=== PATIENT | female | born 1995 | race Hispanic/Latino ===

== ENCOUNTER 2016-05-15 13:04 | Emergency (ER) | payer OTHER ==
[~2016-05-15] VITALS: Ht 167.6 cm; Wt 79.4 kg
[2016-05-15] MEDS ORDERED: PERC5TAB6 PO (13:25)
[2016-05-15] MEDS ORDERED: ONDANSETRON 4MG/2ML VIAL (J2405) IV ONE (13:45)
[2016-05-15] MEDS ORDERED: NS 1,000 ML IV ONE (13:45)
[2016-05-15] MEDS: MORPHINE 4 MG/ML 1ML SYRINGE IV PRN ×2 (14:23→15:38)
[2016-05-15 14:40] LABS: BASO % 0.3 % (0.0-1.0); EOS # 0.1 K/mm3 (0.0-0.50); EOS % 1.7 % (0.0-3.0); LARGE UNSTAINED CELL # 0.1 K/mm3 (0.0-0.4); LARGE UNSTAINED CELL % 1.5 % (0.0-4.0); LYMPH # 1.9 K/mm3 (1.5-6.5); LYMPH % 24.6 % (24.0-44.0); MEAN CORPUSCULAR HEMOGLOBIN 28.5 pg (27.0-33.0); MEAN CORPUSCULAR HGB CONC 34.2 g/dl (32.0-36.5); MEAN CORPUSCULAR VOLUME 83.4 fl (80.0-96.0); MONO # 0.4 K/mm3 (0.0-0.8); MONO % 5.8 % (0.0-5.0); NEUTROPHILS # 4.7 K/mm3 (1.8-7.7); NEUTROPHILS % 66.1 % (36.0-66.0); PLATELET COUNT, AUTOMATED 253 k/mm3 (150-450); RED CELL DISTRIBUTION WIDTH 12.8 % (11.5-14.5); WHITE BLOOD COUNT 7.1 K/mm3 (4.0-10.0)
[2016-05-15 16:36] LABS: ALBUMIN 3.6 GM/DL (3.2-5.2); ALBUMIN/GLOBULIN RATIO 1.06 (1.00-1.93); ALKALINE PHOSPHATASE 85 U/L (45-117); ALT/SGPT 322 U/L (12-78); ANION GAP 7 MEQ/L (8-16); AST/SGOT 235 U/L (15-37); BILIRUBIN,TOTAL 1.6 MG/DL (0.2-1.0); BLOOD UREA NITROGEN 7 MG/DL (7-18); CALCIUM LEVEL 8.4 MG/DL (8.5-10.1); CARBON DIOXIDE LEVEL 27 MEQ/L (21-32); CHLORIDE LEVEL 107 MEQ/L (98-107); CREATININE FOR GFR 0.55 MG/DL (0.55-1.02); GLOMERULAR FILTRATION RATE > 60.0 (>60); GLUCOSE, FASTING 97 MG/DL (70-105); POTASSIUM SERUM 3.1 MEQ/L (3.5-5.1); SODIUM LEVEL 141 MEQ/L (136-145)
[2016-05-15] MEDS ORDERED: KETOROLAC 30 MG/ML VIAL (J1885) IV ONE (16:45)
[2016-05-15] MEDS ORDERED: ISOVUE-370 76% 100ML VIAL (Q9967) As Ordered ONE (17:00)
--- NOTE | 2016-05-15 17:42 | REP ---
CT study of the abdomen and pelvis with IV but without oral contrast: History: Abdominal pain. Right-sided. The patient reports prior cholecystectomy. CT contrast dose: 100 mL of Isovue 370 is administered intravenously. Comparison CT study: 09/27/2014. 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 There are clips in the right upper quadrant. The lung bases are clear on axial CT images. There is a fluid collection adjacent to surgical clips within the gallbladder fossa. This fluid collection measures 4.0 x 2.3 x 2.2 cm. This resembles the gallbladder in size and shape. No gallstone is seen. Common bile duct measures 6-7 mm in AP dimension post cholecystectomy. No pancreatic abnormality is appreciated. No adrenal lesion is observed. No focal liver lesion is seen. The spleen is unremarkable. The kidneys enhance symmetrically are morphologically intact. No retroperitoneal mass or adenopathy is seen. A normal appendix is seen in the right lower quadrant. Uterus is tipped to the left. There is a cystic area in the right ovary measuring 3.5 cm in diameter. Small and large intestinal bowel loops are normal in the abdomen and pelvis. Urinary bladder is intact. No abdominal wall defect is seen. No bony destructive lesion is seen. Incidental note is made of bilateral L5 spondylolysis and a grade 1, 2-3 mm L5-S1 spondylolisthesis. Impression: 1. Post cholecystectomy. There is a 4 cm fluid collection in the gallbladder fossa adjacent to surgical clips. Possibilities include hematoma seroma, biloma, and incomplete resection of the gallbladder due to extensive inflammatory changes. The previously noted gallstones are no longer apparent. Common bile duct is normal in caliber post cholecystectomy. 2. Normal appendix seen. 3. 3.5 cm cystic area right ovary. Otherwise unremarkable. 4. Bilateral L5 spondylolysis and 2 mm grade 1, L5-S1 spondylolisthesis. Signed by Jorgito Aguero MD 05/15/2016 07:36 P
[2016-05-15] MEDS ORDERED: K-TA10TA2 PO (18:28)
[2016-05-15] MEDS ORDERED: KETO10TAB PO (18:28)
[2016-05-15] MEDS ORDERED: ZOFR4TAB3 PO (18:28)
[2016-05-15 18:44] VITALS: BP 129/75
--- NOTE | 2016-05-17 21:06 | ED PDOC ---
Post-Departure Follow-Up dr cosby faxed formal report of ct abd/p for fu John Garrido MD May 17, 2016 21:06
== END 2016-05-15 18:46 | disposition home or self-care (01) ==
LOC: M ED 14:22
DX: E87.5 Hyperkalemia (principal); G89.29 Other chronic pain; R10.9 Unspecified abdominal pain; K87 Disorders of gallbladder, biliary tract and pancreas in diseases classified elsewhere; N83.201 Unspecified ovarian cyst, right side; M43.17 Spondylolisthesis, lumbosacral region; M43.16 Spondylolisthesis, lumbar region; Z79.899 Other long term (current) drug therapy; Z88.6 Allergy status to analgesic agent; Z88.5 Allergy status to narcotic agent
CPT/HCPCS: 74177; 80048; 80076; 81001; 81025; 83690; 85025; 96374; 96375; 99283; J1885; J2405; Q9967

== ENCOUNTER 2016-10-21 01:21 | Inpatient (IN) | payer OTHER ==
[~2016-10-21] VITALS: Ht 167.6 cm; Wt 82.3 kg
[~2016-10-21 01:21] MED LIST: K-TA10TA2 PO; KETO10TAB PO; PERC5TAB12 PO; ZOFR4TAB3 PO
[2016-10-21] MEDS ORDERED: [UNRECOGNIZED DRUG - OTHER] PO (01:43)
[2016-10-21] MEDS ORDERED: NS 1,000 ML IV ONE (03:15)
[2016-10-21] MEDS ORDERED: ONDANSETRON 4MG/2ML VIAL (J2405) IV ONE (03:15)
[2016-10-21] MEDS ORDERED: MORPHINE 4 MG/ML 1ML SYRINGE IV ONE (03:15)
[2016-10-21 03:54] LABS: BASO # 0.1 K/mm3 (0.0-0.2); BASO % 0.6 % (0.0-1.0); EOS # 0.1 K/mm3 (0.0-0.50); EOS % 1.1 % (0.0-3.0); LARGE UNSTAINED CELL # 0.1 K/mm3 (0.0-0.4); LARGE UNSTAINED CELL % 0.8 % (0.0-4.0); LYMPH # 2.2 K/mm3 (1.5-6.5); LYMPH % 18.3 % (24.0-44.0); MEAN CORPUSCULAR HEMOGLOBIN 28.9 pg (27.0-33.0); MEAN CORPUSCULAR HGB CONC 33.8 g/dl (32.0-36.5); MEAN CORPUSCULAR VOLUME 85.4 fl (80.0-96.0); MONO # 0.4 K/mm3 (0.0-0.8); MONO % 3.4 % (0.0-5.0); NEUTROPHILS # 8.6 K/mm3 (1.8-7.7); NEUTROPHILS % 75.8 % (36.0-66.0); PLATELET COUNT, AUTOMATED 260 k/mm3 (150-450); RED CELL DISTRIBUTION WIDTH 12.3 % (11.5-14.5); WHITE BLOOD COUNT 11.4 K/mm3 (4.0-10.0)
--- NOTE | 2016-10-21 04:30 | REPUSA ---
CLINICAL HISTORY: Abdominal pain. TECHNIQUE: Realtime sonographic images were obtained in multiple projections. COMMENTS: Patient states gallbladder surgery on 11/2014. There is a gallbladder-like structure in the gallbladder fossa with multiple echogenic structures sug gestive of stones. Dilated common bile duct measuring 7.9 mm. Limited visualization of the pancreas. Unremarkable liver. Unremarkable right kidney measuring 11.1x5.5x5.9 cm. IMPRESSION: Patient states gallbladder surgery on 11/2014. There is a gallbladder-like structure in the gallbladder fossa with multiple echogenic structures sug gestive of stones. Dilated common bile duct measuring 7.9 mm. Limited visualization of the pancreas. Unremarkable liver. Unremarkable right kidney measuring 11.1x5.5x5.9 cm. Thank you for your kind referral of this patient.
[2016-10-21 04:34] LABS: CONTROL LINE HCG INT CTR LINE PRESENT
[2016-10-21 04:41] LABS: ALBUMIN 4.3 GM/DL (3.2-5.2); ALBUMIN/GLOBULIN RATIO 1.05 (1.00-1.93); ALKALINE PHOSPHATASE 48 U/L (45-117); ALT/SGPT 27 U/L (12-78); AMYLASE 34 U/L (25-115); ANION GAP 10 MEQ/L (8-16); AST/SGOT 11 U/L (15-37); BILIRUBIN,DIRECT < 0.1 MG/DL (0.0-0.2); BILIRUBIN,TOTAL 0.3 MG/DL (0.2-1.0); BLOOD UREA NITROGEN 11 MG/DL (7-18); CALCIUM LEVEL 9.3 MG/DL (8.5-10.1); CARBON DIOXIDE LEVEL 25 MEQ/L (21-32); CHLORIDE LEVEL 109 MEQ/L (98-107); CREATININE FOR GFR 0.68 MG/DL (0.55-1.02); GLOMERULAR FILTRATION RATE > 60.0 (>60); GLUCOSE, FASTING 122 MG/DL (70-105); POTASSIUM SERUM 3.7 MEQ/L (3.5-5.1); SODIUM LEVEL 144 MEQ/L (136-145); TOTAL PROTEIN 8.4 GM/DL (6.4-8.2)
[2016-10-21] MEDS ORDERED: ISOVUE-370 76% 100ML VIAL (Q9967) As Ordered ONE (05:52)
[2016-10-21] MEDS: HYDROmorphone HCL 1 MG/ML SYRINGE (J1170) IV PRN ×2 (06:00→08:18)
--- NOTE | 2016-10-21 07:00 | REPUSA ---
CLINICAL HISTORY: Abdominal pain. TECHNIQUE: Multiple axial, sagittal and coronal CT images were obtained through the abdomen and pelvi s after administration of intravenous contrast material. COMMENTS: Comparison to the prior exam performed on 05/15/2016. Interval appearance of significant thickening of the proximal aspect of the transverse colon. Associated narrowing of the lumen of the transverse colon at this level with mild surrounding fat str anding. Mild diffuse thickening of the wall of the bladder. Mild bilateral changes of pelvic congestion syndrome. The liver is of uniform attenuation without mass or defect. There is no intra or extrahepatic biliary ductal dilatation. The spleen is normal. The gallbladder is within normal limits. Adjacent clips are noted. The pancreas is of normal contour and attenuation characteristics. There is no evidence of adrenal mass. Both kidneys demonstrate prompt and equal nephrograms. The kidneys are normal in size, shape and conf iguration. There is no evidence of renal or ureteral mass. No renal or ureteral calculi are identifie d. There is no hydroureter or hydronephrosis. No evidence for appendicitis. No evidence for small or large bowel obstruction. There is no evidence of abdominal ascites or lymphadenopathy. There is no evidence of intrinsic or extrinsic bladder mass. There is no pelvic ascites or lymphadeno dayanara. Images of the lung bases show no evidence of pleural or parenchymal mass. There are no pleural effusi ons. Bilateral basilar atelectatic pulmonary changes. The bony structures are free of lytic or blastic lesions. Multilevel degenerative changes are seen in volving the thoracolumbar spine. Scattered calcifications are seen involving the aorta and major bran ches compatible with atherosclerosis. IMPRESSION: Comparison to the prior exam performed on 05/15/2016. Interval appearance of significant thickening of the proximal aspect of the transverse colon. Associated narrowing of the lumen of the transverse colon at this level with mild surrounding fat str anding. Probably infectious/inflammatory pathology. This needs clinical evaluation and followup to exclude an underlying/associated mural neoplastic pathology. Mild diffuse thickening of the wall of the bladder. Mild bilateral changes of pelvic congestion syndrome. Normal gallbladder by CT criteria. Adjacent metallic clips are noted. Thank you for your kind referral of this patient.
[2016-10-21] MEDS ORDERED: MORPHINE 4 MG/ML 1ML SYRINGE IV PRN (09:45)
[2016-10-21] MEDS ORDERED: ACETAMINOPHEN TAB 650MG DOSE (2X325MG) PO PRN (09:45)
[2016-10-21] MEDS ORDERED: CIPROFLOXACIN 400 MG in APPROPRIATE DILUENT 1 EA IV SCH ×2 (10:00→18:15)
[2016-10-21] MEDS: ONDANSETRON 4MG/2ML VIAL (J2405) IV PRN ×2 (12:54→20:17)
[2016-10-21 16:13] VITALS: BP 137/81
[2016-10-21] MEDS: PERCOCET 5MG/325MG TAB PO PRN ×2 (16:27→20:13)
[2016-10-21] MEDS: SENOKOT S TAB PO SCH ×2 (17:54→20:12)
[2016-10-21] MEDS: ENOXAPARIN 40 MG/0.4 ML SYRINGE (J1650) SC SCH (17:57)
[2016-10-21] MEDS: LR 1,000 ML IV SCH (17:57)
[2016-10-21] MEDS: PANTOPRAZOLE 40MG INJ (PROTONIX) (C9113) IV SCH (17:57)
[2016-10-21] MEDS: metroNIDAZOLE 500 MG in APPROPRIATE DILUENT 1 EA IV SCH ×2 (17:58→18:11)
[2016-10-21 20:00] VITALS: BP 123/74
[2016-10-22] VITALS: BP 126/61
[2016-10-22] MEDS: LR 1,000 ML IV SCH ×3 (01:57→22:20)
[2016-10-22] MEDS: metroNIDAZOLE 500 MG in APPROPRIATE DILUENT 1 EA IV SCH ×3 (02:02→19:08)
[2016-10-22] MEDS: PERCOCET 5MG/325MG TAB PO PRN ×2 (02:02→09:55)
[2016-10-22] MEDS: CIPROFLOXACIN 400 MG in APPROPRIATE DILUENT 1 EA IV SCH ×2 (05:34→17:37)
[2016-10-22] MEDS: PANTOPRAZOLE 40MG INJ (PROTONIX) (C9113) IV SCH (08:29)
[2016-10-22 08:30] VITALS: BP 126/79
[2016-10-22] MEDS: ENOXAPARIN 40 MG/0.4 ML SYRINGE (J1650) SC SCH (08:30)
[2016-10-22] MEDS: SENOKOT S TAB PO SCH ×2 (08:30→20:54)
[2016-10-22] MEDS: ONDANSETRON 4MG/2ML VIAL (J2405) IV PRN ×2 (09:54→19:08)
[2016-10-22 16:00] VITALS: BP 118/67
--- NOTE | 2016-10-22 16:12 | IPNPDOC ---
Subjective General Date/Time Seen The patient was seen on 10/22/16 at 10:09. Subject Chief Complaint/History The patient is a 21-year-old female admitted with a reason for visit of Abdominal Pain Patient still having significant RUQ pain and discomfort as well as some nausea. On clears, not taking much. Current Medications Current Medications Current Medications Acetaminophen (Tylenol Tab) 650 mg Q4HP PRN PO MILD PAIN or TEMP > 101; Start 10/21/16 at 09:45; Stop 11/20/16 at 09:44 Ciprofloxacin 400 mg/IV Miscellaneous Supplies 200 ml @ 200 mls/hr Q12H IV Last administered on 10/21/16 16:28; Start 10/21/16 at 10:00; Stop 10/21/16 at 18:11; Status DC Ciprofloxacin 400 mg/IV Miscellaneous Supplies 200 ml @ 200 mls/hr Q12H IV ; Start 10/21/16 at 18:15; Stop 10/28/16 at 18:14; Status Cancel Ciprofloxacin 400 mg/IV Miscellaneous Supplies 200 ml @ 200 mls/hr Q12H IV Last administered on 10/22/16 05:34; Start 10/22/16 at 05:00; Stop 10/29/16 at 04:59 Enoxaparin Sodium (Lovenox) 40 mg DAILY SC Last administered on 10/22/16 08:30 ; Start 10/21/16 at 09:00; Stop 10/26/16 at 08:59 Home Med (Med Rec Complete!) ASDIRECTED XX ; Start 10/21/16 at 10:15; Stop at 10:25; Status DC Hydromorphone HCl (Dilaudid) 0.5 mg Q30M PRN IV MODERATE PAIN (PS 5-7) Last administered on 10/21/16 08:18; Start 10/21/16 at 05:00; Stop 10/21/16 at 08:19 ; Status DC Lactated Ringer's 1,000 ml @ 125 mls/hr Q8H IV Last administered on 10/22/16 01:57; Start 10/21/16 at 09:37; Stop 11/20/16 at 09:36 Metronidazole 500 mg/IV Miscellaneous Supplies 100 ml @ 100 mls/hr Q8H IV Last administered on 10/22/16 11:29; Start 10/21/16 at 11:00; Stop 10/28/16 at 10:59 Miscellaneous (Unresolved Clarification Entry) SEE LABEL COMMENTS UNRESOLVED XX ; Start 10/21/16 at 00:01; Stop 10/21/16 at 11:13; Status DC Morphine Sulfate (Morphine Sulfate Inj) 4 mg Q2HP PRN IV SEVERE PAIN (PS 8-10) Last administered on 10/21/16 12:57; Start 10/21/16 at 09:45; Stop 10/28/16 at 09:44 Ondansetron HCl (ZOFRAN INJection) 4 mg Q6HP PRN IV NAUSEA OR VOMITING Last administered on 10/22/16 09:54; Start 10/21/16 at 09:45; Stop 11/20/16 at 09: 44 Oxycodone/ Acetaminophen (Percocet 5mg/ 325mg Tablet) 1 tab Q4HP PRN PO MODERATE PAIN (PS 5-7) Last administered on 10/21/16 20:13; Start 10/21/16 at 09:45; Stop 10/28/16 at 09:44 Oxycodone/ Acetaminophen (Percocet 5mg/ 325mg Tablet) 2 tab Q6HP PRN PO SEVERE PAIN (PS 8-10) Last administered on 10/22/16 09:55; Start 10/21/16 at 09:45; Stop 10/28/16 at 09:44 Pantoprazole Sodium (Protonix) 40 mg DAILY IV Last administered on 10/22/16 08 :29; Start 10/21/16 at 09:00; Stop 11/20/16 at 08:59 Senna/Docusate Sodium (Senokot S) 1 tab BID PO Last administered on 10/22/16 08:30; Start 10/21/16 at 09:00; Stop 11/20/16 at 08:59 Allergies Coded Allergies: Oxycodone (Verified Allergy, Mild, rash, 10/24/16) Objective Physical Examination Examination GENERAL APPEARANCE:Patient seen, laying in bed, awake, alert, and oriented. Comfortable, in no acute distress. SKIN: Warm and moist. HEENT: Normocephalic, atraumatic. [place] palpebral conjunctiva, anicteric sclerae. Lips and mucosa appear moist. NECK: Supple, no thyromegaly. No obvious jugular venous distention. LUNGS: Clear to auscultation bilaterally. No wheezing appreciated. HEART: No chest wall abnormalities. Regular rate and rhythm with no murmurs appreciated. ABDOMEN: Abdomen is found, soft, minimally distended. Still moderate tenderness over the right upper quadrant area EXTREMITIES: Extremities have no deformities. No edema identified. Vital Signs Vital Signs Date Time Temp Pulse Resp B/P (MAP) Pulse Ox O2 Delivery O2 Flow Rate FiO2 10/22/16 10:50 16 10/22/16 08:30 98.0 59 126/79 (95) 98 Room Air I&Os I&O- Last 24 Hours up to 6 AM 10/22/16 05:59 Intake Total 1450 ml Balance 1450 ml Impression Right upper quadrant pain Suspect biloma, well-contained noninfected Suspect possible retained stones in the common bile duct The MRI was done but not read yet by our radiologist. For now we will keep her on clears. She may need gastroenterology consult if stones are found in the common bile duct for ERCP Plan / VTE VTE Prophylaxis Ordered?: Yes GAL COVINGTON MD Oct 22, 2016 16:12
[2016-10-23 00:02] VITALS: BP 107/63
[2016-10-23] MEDS: metroNIDAZOLE 500 MG in APPROPRIATE DILUENT 1 EA IV SCH ×3 (02:37→18:09)
[2016-10-23] MEDS: CIPROFLOXACIN 400 MG in APPROPRIATE DILUENT 1 EA IV SCH ×2 (04:46→16:25)
[2016-10-23 07:14] LABS: BASO % 0.5 % (0.0-1.0); EOS # 0.1 K/mm3 (0.0-0.50); EOS % 2.4 % (0.0-3.0); LARGE UNSTAINED CELL # 0.1 K/mm3 (0.0-0.4); LARGE UNSTAINED CELL % 2.2 % (0.0-4.0); LYMPH # 2.5 K/mm3 (1.5-6.5); LYMPH % 40.9 % (24.0-44.0); MEAN CORPUSCULAR HEMOGLOBIN 28.5 pg (27.0-33.0); MEAN CORPUSCULAR HGB CONC 33.4 g/dl (32.0-36.5); MEAN CORPUSCULAR VOLUME 85.2 fl (80.0-96.0); MONO # 0.5 K/mm3 (0.0-0.8); MONO % 8.9 % (0.0-5.0); NEUTROPHILS # 2.7 K/mm3 (1.8-7.7); NEUTROPHILS % 45.2 % (36.0-66.0); PLATELET COUNT, AUTOMATED 195 k/mm3 (150-450); RED CELL DISTRIBUTION WIDTH 12.3 % (11.5-14.5); WHITE BLOOD COUNT 5.9 K/mm3 (4.0-10.0)
[2016-10-23 07:32] LABS: ALKALINE PHOSPHATASE 39 U/L (45-117); ALT/SGPT 17 U/L (12-78); ANION GAP 8 MEQ/L (8-16); AST/SGOT 14 U/L (15-37); BILIRUBIN,TOTAL 0.2 MG/DL (0.2-1.0); BLOOD UREA NITROGEN 5 MG/DL (7-18); CALCIUM LEVEL 8.3 MG/DL (8.5-10.1); CARBON DIOXIDE LEVEL 29 MEQ/L (21-32); CHLORIDE LEVEL 108 MEQ/L (98-107); CREATININE FOR GFR 0.66 MG/DL (0.55-1.02); GLOMERULAR FILTRATION RATE > 60.0 (>60); GLUCOSE, FASTING 90 MG/DL (70-105); POTASSIUM SERUM 3.5 MEQ/L (3.5-5.1); SODIUM LEVEL 145 MEQ/L (136-145)
[2016-10-23 08:00] VITALS: BP 109/64
[2016-10-23] MEDS: SENOKOT S TAB PO SCH ×2 (08:00→19:57)
[2016-10-23] MEDS: LR 1,000 ML IV SCH ×4 (08:32→18:10)
[2016-10-23] MEDS: ENOXAPARIN 40 MG/0.4 ML SYRINGE (J1650) SC SCH (08:32)
[2016-10-23] MEDS: PANTOPRAZOLE 40MG INJ (PROTONIX) (C9113) IV SCH (08:32)
[2016-10-23] MEDS ORDERED: INFLUENZA QUADRIVALENT PF VACCINE 0.5ML SYRINGE (90686) IM ONE (09:00)
--- NOTE | 2016-10-23 09:15 | REP ---
MRCP: MRCP exam was accomplished utilizing multiple heavily T2-weighted sequences in the axial and coronal planes with MIP reconstruction images performed. There is a sac filled with fluid and multiple filling defects in the region of the gallbladder fossa. This has the appearance of a gallbladder containing multiple gallstones. The common hepatic and common bile duct are not significantly dilated. The maximum diameter is 6 mm. There does appear to be a 6 mm filling defect on the distal common bile duct, which appears to represent a gallstone within the duct. There is no pancreatic duct dilatation. No adenopathy is seen in the visualized abdomen nor is there evidence of free fluid. IMPRESSION: Fluid-filled structure in the gallbladder fossa has the appearance of a gallbladder containing multiple gallstones. No intrahepatic or extrahepatic biliary dilatation. There does appear to be a stone in the distal common bile duct measuring 6 mm in diameter. Signed by Armond Shin MD 10/23/2016 04:59 P
--- NOTE | 2016-10-23 11:14 | HPEPDOC ---
General Surgery H&P Date of Admission Oct 21, 2016 at 09:37 History and Physical CHIEF COMPLAINT: Abdominal pain, right upper quadrant pain HISTORY OF PRESENT ILLNESS: Healthy 21-year-old female presented herself to the emergency room with acute onset of right upper quadrant pain. She reports a history of cholecystectomy back in 2014. She doesn't left for [place] shortly after her procedure. In June 2015 she had been seen in the hospital there for another episode of abdominal pain and from her reports had a drain placed on her right upper quadrant area for 3 months which was draining greenish bilious fluid. She was having episodes of pain and vomiting then. Her symptoms improved with the drainage and subsequently this was continued so she never did follow up with the same Dr./surgeon who saw her initially. The drain was discontinued after [place] She said prior to discontinuing the drain she has CT scan of the abdomen and pelvis done that shows no further collection. She reports since then she would have some intermittent mild episodes of right upper quadrant pain sometimes associated with nausea but usually, ago. She would intermittently takes some Percocets which she had left over. She seems to have been seen back in May of this year in our emergency room for another episode of same pain. She had imaging studies [address] of the abdomen and pelvis. Her LFTs were mildly elevated also. She did not follow up with anybody regarding this findings. She returns today after experiencing persistent pain overnight. This started after 7 PM initially was improving after dinner last night started to become severe radiating to the midepigastric and back area associated with nausea but no vomiting. She denies any fevers or chills. Patient is seen in the emergency room and this still noticeably uncomfortable. ALLERGIES: Please see below. HOME MEDICATIONS: Please see below. PAST MEDICAL HISTORY: PAST SURGICAL HISTORY: Laparoscopic cholecystectomy with Dr. Holliday in 2014 Percutaneous drain placement to the right upper quadrant collection in 2015 PERSONAL/SOCIAL HISTORY: Smokes a few cigarettes a day, occasional alcohol use, denies recreational drug use REVIEW OF SYSTEMS: GENERAL: Denies chills, fatigue, fever, she has had some weight gain; denies weight loss. HEENT: Denies blurred vision and double vision. Denies ear symptoms. Denies hoarseness. NECK: Denies any neck pain. CARDIOVASCULAR: Denies chest pain and palpitations. MUSCULOSKELETAL: Denies arthralgias, back pain and thrombophlebitis. SKIN: Denies rash; jaundice NEUROLOGIC: Denies headache, stroke and transient ischemic attack. PSYCHIATRIC: Denies anxiety and depression. ENDOCRINE: Denies thyroid disease. HEMATOLOGY/ONCOLOGY: Denies any bleeding or clotting disorder. HEART: Denies any chest pains, palpitations, paroxysmal dyspnea, orthopnea. PULMONARY: Denies chronic cough, dyspnea and wheezing. GASTROINTESTINAL: See HPI GENITOURINARY: Denies dysuria, frequency, hematuria and nocturia. ENDOCRINE: Denies polydipsia, polyphagia, polyuria, heat or cold intolerance. INFECTIOUS: Denies any recent upper respiratory tract infection, UTI, need for use of antibiotics. NUTRITION: Reports good appetite. PHYSICAL EXAMINATION: VITAL SIGNS: Please see below. GENERAL APPEARANCE: Patient seen at bedside, appears uncomfortable. Awake, alert , oriented. HEENT: Normocephalic, atraumatic. [place] palpebral conjunctivae. Anicteric sclerae. Lips dry. CHEST: No chest wall abnormalities. Normal respiratory motion/effort. NECK: Supple. No thyromegaly. No lymphadenopathies. LUNGS: Lung sounds are clear to auscultation bilaterally. No wheezing appreciated. HEART: No chest wall abnormalities. Heart rate and rhythm are regular with no murmurs. ABDOMEN: Abdomen is mild obese, soft, slightly rounded. No hepatosplenomegaly. No umbilical or groin herniations, nondistended. Tender on palpation over her right upper quadrant/subcostal area with no rebound or guarding. SKIN: Warm, moist. EXTREMITIES: Extremities have no deformities. No edema identified. NEUROLOGICAL: . ANCILLARIES: . LABORATORY DATA: Please see below. MICROBIOLOGY: Please see below. IMAGING: CT abdomen and pelvis Comparison to the prior exam performed on 05/15/2016. Interval appearance of significant thickening of the proximal aspect of the transverse colon. Associated narrowing of the lumen of the transverse colon at this level with mild surrounding fat stranding. Probably infectious/inflammatory pathology. This needs clinical evaluation and followup to exclude an underlying/associated mural neoplastic pathology. Mild diffuse thickening of the wall of the bladder. Mild bilateral changes of pelvic congestion syndrome. Normal gallbladder by CT criteria. Adjacent metallic clips are noted. Gallbladder ultrasound Patient states gallbladder surgery on 11/2014. There is a gallbladder-like structure in the gallbladder fossa with multiple echogenic structures suggestive of stones. Dilated common bile duct measuring 7.9 mm. Limited visualization of the pancreas. Unremarkable liver. Unremarkable right kidney measuring 11.1x5.5x5.9 cm. IMPRESSION AND PLAN: Right upper quadrant pain status post cholecystectomy with abnormal imaging studies bili needing a possibility of chronic biloma. Possible reactive colitis I reviewed the operative note of Dr. Holliday 2014 as well as the pathology that was submitted during that time documenting removal of the gallbladder. She had an intervening episode in 2016 of a collection which most likely was a biloma whether from a bile leakage or cystic stump blowout. We will try to get more information on this by getting the hospital records fair. We will ask her to sign for release of her records. Imaging studies including that 1 in May as well as during this presentation shows a gallbladder appearing structure in the right upper quadrant with stones. No extrahepatic biliary ductal dilatation. I' ll start her on antibiotics for now for possible colitis as well as choledocholithiasis given her presentation as well as previous presentation back in May were her LFTs was mildly abnormal. Through a possibility as she has some retained stones that is intermittently causing her problems. I'll get an MRCP to further delineate the anatomy of the biliary tree. I have spoken to her possibility of needing ERCP either delineate anatomy or as a therapeutic measure with regards to the stone in the biliary tree. Further recommendations depending on her hospital course as well as results of the MRCP. Vital Signs Vital Signs Date Time Temp Pulse Resp B/P (MAP) Pulse Ox O2 Delivery O2 Flow Rate FiO2 10/23/16 08:00 98.3 68 16 109/64 (79) 99 Room Air I&Os I&O- Last 24 Hours up to 6 AM 10/23/16 05:59 Intake Total 3397 ml Output Total 800 ml Balance 2597 ml Laboratory Data Labs 24H Laboratory Tests 2 10/23/16 06:52: White Blood Count 5.9, Red Blood Count 4.19, Hemoglobin 11.9L, Hematocrit 35.7L , Mean Corpuscular Volume 85.2, Mean Corpuscular Hemoglobin 28.5, Mean Corpuscular Hemoglobin Concent 33.4, Red Cell Distribution Width 12.3, Platelet Count 195, Neutrophils (%) (Auto) 45.2, Lymphocytes (%) (Auto) 40.9, Monocytes ( %) (Auto) 8.9H, Eosinophils (%) (Auto) 2.4, Basophils (%) (Auto) 0.5, Neutrophils # (Auto) 2.7, Lymphocytes # (Auto) 2.5, Monocytes # (Auto) 0.5, Eosinophils # (Auto) 0.1, Basophils # (Auto) 0.0, Large Unclassified Cells % 2.2 , Large Unclassified Cells # 0.1, Anion Gap 8, Glomerular Filtration Rate > 60.0 , Blood Urea Nitrogen 5#L, Creatinine 0.66, Sodium Level 145, Potassium Level 3.5, Chloride Level 108H, Carbon Dioxide Level 29, Calcium Level 8.3L, Aspartate Amino Transf (AST/SGOT) 14L, Alanine Aminotransferase (ALT/SGPT) 17, Alkaline Phosphatase 39L, Total Bilirubin 0.2, Total Protein 6.0#L, Albumin 3.0# L, Albumin/Globulin Ratio 1.00 CBC/BMP Laboratory Tests 10/23/16 06:52 Red Blood Count 4.19, Mean Corpuscular Volume 85.2, Mean Corpuscular Hemoglobin 28.5, Mean Corpuscular Hemoglobin Concent 33.4, Red Cell Distribution Width 12.3 , Neutrophils (%) (Auto) 45.2, Lymphocytes (%) (Auto) 40.9, Monocytes (%) (Auto ) 8.9 H, Eosinophils (%) (Auto) 2.4, Basophils (%) (Auto) 0.5, Neutrophils # ( Auto) 2.7, Lymphocytes # (Auto) 2.5, Monocytes # (Auto) 0.5, Eosinophils # (Auto ) 0.1, Basophils # (Auto) 0.0, Calcium Level 8.3 L, Aspartate Amino Transf (AST/ SGOT) 14 L, Alanine Aminotransferase (ALT/SGPT) 17, Alkaline Phosphatase 39 L, Total Bilirubin 0.2, Total Protein 6.0 #L, Albumin 3.0 #L Home Medications Scheduled (Detox) 1 Cap Cap, 1 CAP PO BID, (Reported) Allergies Coded Allergies: Acetaminophen (Verified Allergy, Unknown, rash, 05/15/16) Oxycodone (Verified Allergy, Unknown, rash, 05/15/16) GAL COVINGTON MD Oct 23, 2016 11:14
--- NOTE | 2016-10-23 11:19 | IPNPDOC ---
Subjective General Date/Time Seen The patient was seen on 10/23/16 at 11:14. Subject Chief Complaint/History The patient is a 21-year-old female admitted with a reason for visit of Abdominal Pain Patient reports her discomfort has mostly resolved safe for some mild discomfort when she bends over to the right upper quadrant area. Her nausea also has mostly resolved at this point. She feels hungry. She has been afebrile throughout her stay. Current Medications Current Medications Current Medications Acetaminophen (Tylenol Tab) 650 mg Q4HP PRN PO MILD PAIN or TEMP > 101; Start 10/21/16 at 09:45; Stop 11/20/16 at 09:44 Ciprofloxacin 400 mg/IV Miscellaneous Supplies 200 ml @ 200 mls/hr Q12H IV Last administered on 10/21/16 16:28; Start 10/21/16 at 10:00; Stop 10/21/16 at 18:11; Status DC Ciprofloxacin 400 mg/IV Miscellaneous Supplies 200 ml @ 200 mls/hr Q12H IV ; Start 10/21/16 at 18:15; Stop 10/28/16 at 18:14; Status Cancel Ciprofloxacin 400 mg/IV Miscellaneous Supplies 200 ml @ 200 mls/hr Q12H IV Last administered on 10/23/16 04:46; Start 10/22/16 at 05:00; Stop 10/29/16 at 04:59 Enoxaparin Sodium (Lovenox) 40 mg DAILY SC Last administered on 10/23/16 08:32 ; Start 10/21/16 at 09:00; Stop 10/26/16 at 08:59 Home Med (Med Rec Complete!) ASDIRECTED XX ; Start 10/21/16 at 10:15; Stop at 10:25; Status DC Hydromorphone HCl (Dilaudid) 0.5 mg Q30M PRN IV MODERATE PAIN (PS 5-7) Last administered on 10/21/16 08:18; Start 10/21/16 at 05:00; Stop 10/21/16 at 08:19 ; Status DC Lactated Ringer's 1,000 ml @ 125 mls/hr Q8H IV Last administered on 10/23/16 08:32; Start 10/21/16 at 09:37; Stop 11/20/16 at 09:36 Metronidazole 500 mg/IV Miscellaneous Supplies 100 ml @ 100 mls/hr Q8H IV Last administered on 10/23/16 10:19; Start 10/21/16 at 11:00; Stop 10/28/16 at 10:59 Miscellaneous (Unresolved Clarification Entry) SEE LABEL COMMENTS UNRESOLVED XX ; Start 10/21/16 at 00:01; Stop 10/21/16 at 11:13; Status DC Morphine Sulfate (Morphine Sulfate Inj) 4 mg Q2HP PRN IV SEVERE PAIN (PS 8-10) Last administered on 10/21/16 12:57; Start 10/21/16 at 09:45; Stop 10/28/16 at 09:44 Ondansetron HCl (ZOFRAN INJection) 4 mg Q6HP PRN IV NAUSEA OR VOMITING Last administered on 10/22/16 19:08; Start 10/21/16 at 09:45; Stop 11/20/16 at 09: 44 Oxycodone/ Acetaminophen (Percocet 5mg/ 325mg Tablet) 1 tab Q4HP PRN PO MODERATE PAIN (PS 5-7) Last administered on 10/21/16 20:13; Start 10/21/16 at 09:45; Stop 10/28/16 at 09:44 Oxycodone/ Acetaminophen (Percocet 5mg/ 325mg Tablet) 2 tab Q6HP PRN PO SEVERE PAIN (PS 8-10) Last administered on 10/22/16 09:55; Start 10/21/16 at 09:45; Stop 10/28/16 at 09:44 Pantoprazole Sodium (Protonix) 40 mg DAILY IV Last administered on 10/23/16 08 :32; Start 10/21/16 at 09:00; Stop 11/20/16 at 08:59 Senna/Docusate Sodium (Senokot S) 1 tab BID PO Last administered on 10/22/16 20:54; Start 10/21/16 at 09:00; Stop 11/20/16 at 08:59 Allergies Coded Allergies: Acetaminophen (Verified Allergy, Unknown, rash, 05/15/16) Oxycodone (Verified Allergy, Unknown, rash, 05/15/16) Objective Physical Examination Examination GENERAL APPEARANCE:Patient seen, walking in the room, awake, alert, and oriented. Comfortable, in no acute distress. SKIN: Warm and moist. HEENT: Normocephalic, atraumatic. [place] palpebral conjunctiva, anicteric sclerae. Lips and mucosa appear moist. NECK: Supple, no thyromegaly. No obvious jugular venous distention. LUNGS: Clear to auscultation bilaterally. No wheezing appreciated. HEART: No chest wall abnormalities. Regular rate and rhythm with no murmurs appreciated. ABDOMEN: Abdomen is , nondistended, soft, . Minimally tender on deep palpation only. EXTREMITIES: Extremities have no deformities. No edema identified. Vital Signs Vital Signs Date Time Temp Pulse Resp B/P (MAP) Pulse Ox O2 Delivery O2 Flow Rate FiO2 10/23/16 08:00 98.3 68 16 109/64 (79) 99 Room Air I&Os I&O- Last 24 Hours up to 6 AM 10/23/16 05:59 Intake Total 3397 ml Output Total 800 ml Balance 2597 ml Laboratory Data Labs 24H Laboratory Tests 2 10/23/16 06:52: White Blood Count 5.9, Red Blood Count 4.19, Hemoglobin 11.9L, Hematocrit 35.7L , Mean Corpuscular Volume 85.2, Mean Corpuscular Hemoglobin 28.5, Mean Corpuscular Hemoglobin Concent 33.4, Red Cell Distribution Width 12.3, Platelet Count 195, Neutrophils (%) (Auto) 45.2, Lymphocytes (%) (Auto) 40.9, Monocytes ( %) (Auto) 8.9H, Eosinophils (%) (Auto) 2.4, Basophils (%) (Auto) 0.5, Neutrophils # (Auto) 2.7, Lymphocytes # (Auto) 2.5, Monocytes # (Auto) 0.5, Eosinophils # (Auto) 0.1, Basophils # (Auto) 0.0, Large Unclassified Cells % 2.2 , Large Unclassified Cells # 0.1, Anion Gap 8, Glomerular Filtration Rate > 60.0 , Blood Urea Nitrogen 5#L, Creatinine 0.66, Sodium Level 145, Potassium Level 3.5, Chloride Level 108H, Carbon Dioxide Level 29, Calcium Level 8.3L, Aspartate Amino Transf (AST/SGOT) 14L, Alanine Aminotransferase (ALT/SGPT) 17, Alkaline Phosphatase 39L, Total Bilirubin 0.2, Total Protein 6.0#L, Albumin 3.0# L, Albumin/Globulin Ratio 1.00 CBC/BMP Laboratory Tests 10/23/16 06:52 Red Blood Count 4.19, Mean Corpuscular Volume 85.2, Mean Corpuscular Hemoglobin 28.5, Mean Corpuscular Hemoglobin Concent 33.4, Red Cell Distribution Width 12.3 , Neutrophils (%) (Auto) 45.2, Lymphocytes (%) (Auto) 40.9, Monocytes (%) (Auto ) 8.9 H, Eosinophils (%) (Auto) 2.4, Basophils (%) (Auto) 0.5, Neutrophils # ( Auto) 2.7, Lymphocytes # (Auto) 2.5, Monocytes # (Auto) 0.5, Eosinophils # (Auto ) 0.1, Basophils # (Auto) 0.0, Calcium Level 8.3 L, Aspartate Amino Transf (AST/ SGOT) 14 L, Alanine Aminotransferase (ALT/SGPT) 17, Alkaline Phosphatase 39 L, Total Bilirubin 0.2, Total Protein 6.0 #L, Albumin 3.0 #L Imaging Studies MRCP Fluid-filled structure in the gallbladder fossa has the appearance of a gallbladder containing multiple gallstones. No intrahepatic or extrahepatic biliary dilatation. There does appear to be a stone in the distal common bile duct measuring 6 mm in diameter. Impression Retained common bile duct stone Abnormal imaging study showing either collection in her gallbladder light sac with stones. She is 2 years after cholecystectomy I discussed with her results of the MRCP. She has a common bile duct stone that probably is intermittently giving her symptoms. I have contacted Dr. Doe for ERCP and stone extraction. Have also ordered a HIDA scan to delineate whether there is still flow onto that right upper quadrant collection. Make the areas she has a long-standing chronic biloma which may or may not still communicate with the biliary tree but having this recur after the drainage back in 2016, most likely still has connection to the cystic duct stump. I'm hoping the HIDA scan and subsequent ERCP will give us more information on this. She may be asymptomatic from this though long-term sequelae of a biloma is unclear. If this needs operative repair, I would recommend for her to see a hepatobiliary surgeon as this would have a high risk of bile duct injury. Plan / VTE VTE Prophylaxis Ordered?: Yes GAL COVINGTON MD Oct 23, 2016 11:19
--- NOTE | 2016-10-23 15:07 | REP ---
Hepatobiliary scan: History: Suspect biloma. Comparison MRI study October [address] and ultrasound exams are from the same date. Technique: 6.2 mCi technetium 99m mebrofenin is injected and sequential anterior abdominal images are acquired. Findings: The initial hepatocellular parenchymal uptake phase is normal and homogeneous. Intrahepatic and extrahepatic biliary tree is labeled at 10 minutes along with early duodenal labeling. Subsequent images demonstrate washout from the liver parenchyma into the small intestine. There is no evidence of bile leak. The gallbladder is not labeled scintigraphically during the 60-minute imaging interval. Impression: No evidence of bile leak seen. Signed by Jorgito Aguero MD 10/23/2016 04:35 P
[2016-10-23 16:00] VITALS: BP 115/77
[2016-10-23 20:00] VITALS: BP 109/60
--- NOTE | 2016-10-23 23:18 | CR.PDOC ---
[facility] Consultation Consultation DATE OF CONSULTATION: Oct 23, 2016 at 5: 30 PM. REFERRING PROVIDER: Dr. Terry. ATTENDING PHYSICIAN: Dr. Terry. REASON FOR CONSULTATION/CHIEF COMPLAINT: abnormal MRI , CT and USG abdomen. HISTORY OF PRESENT ILLNESS: 21-year-old female patient with no chronic medical comorbidities, h/o cholecytectomy in 2014 in [facility] (by Dr. Holliday), s/p complicated by gall bladder fossa collection s/p drainage placement and later removal, now admitted to hospital for acute onset abdominal pain. Noted to have dilated CBD and CBD stones in imaging and GI consulted for the same. Patient reports she had intermittent episodes of right upper quadrant pain usually resolved after few pain medications but this time she started having acute onset 10/10 intensity right upper quadrant pain -- associated with nausea and vomiting which last for two days and currently improving. Pertinent negative symptoms: Patient denies any fevers or chills, loss of appetite, unintentional loss of appetite, diarrhea, hematemesis, hematochezia, melena. REVIEW OF SYSTEMS: GI; as above. GENERAL: Denies fever, chills. HEENT: Denies any sore throat or dysphagia. photophobia, neck pain. CVS: Denies chest pain and palpitations. RESP: Denies SOB Or chest pain. NEUROLOGIC: Denies headache, weakness MUSCULOSKELETAL: Denies arthralgias, back pain. SKIN: Denies rash;. HEMATOLOGY: Denies any bleeding or clotting disorder. GENITOURINARY: Denies dysuria, frequency, hematuria. PMH: as above. ALLERGIES: reviewed. Acetaminophen and ocycodone. HOME MEDICATIONS: reviewed. PSH: Laparoscopic cholecystectomy with Dr. Holliday in 2014, Percutaneous drain placement to the right upper quadrant collection in 2016 Social H/o: Denied smoking, alcohol or drug use. Prior Endoscopies: H/o prior EGD -- outside [facility]. NO prior colonoscopy. PHYSICAL EXAMINATION: VITAL SIGNS: afebrile. GENERAL: resting comfortable. Awake, alert, oriented x 3. HEENT: NO pallor, no icterus. CHEST: Normal breath sounds bilaterally. NO respiratory distress. CVS: s1, s2 heard, regular. no murmurs. ABDOMEN: mild obese, soft, nontender, normal bowel sounds. no palpable organomegaly. no rebound or guarding. SKIN: NO rash.. EXTREMITIES: No pedal edema NEUROLOGICAL: AAO x 3. No focal deficits. LABORATORY DATA: Reviewed. SLight drop in Hb.HCT - likely dilutional Normal LFTs Normal WBC. IMAGING: Reviewed in person with radiologist -- Impression -- contained collection with multiple possible stones and atleast one stone in CBD with dilated CBD. CT abdomen and pelvis: Also mentioned Interval appearance of significant thickening of the proximal aspect of the transverse colon and Associated narrowing of the lumen of the transverse colon at this level with mild surrounding fat stranding. Probably infectious/inflammatory pathology. This needs clinical evaluation and followup to exclude an underlying/associated mural neoplastic pathology. IMPRESSION: -- Right upper quadrant pain with nausea and vomiting - intermittent -- with imaging showing possible CBD stone -- likely non-obstructing -- normal LFTs. ( h /o cholecystectomy and current abnormal imaging studies -- likely a contained collection but with multiple stones as per radiologist).. -- Abnormal CT scan showing transverse colon thickening -- needs further evaluation - no clinical symptoms. Recommendations: -- Educated patient in detail about the test results and need for further work up. -- IN view of MRCP showing distal CBD stone and Dilated CBD -- patient will need therapeutic ERCP. -- Patient is educated about the ERCP procedure, its indications, benefits, risks ( including but not limited to acute pancreatitis and its complications including multiorgan failure and , bleeding, infection, perforation, need for urgent surgery, prolonged intubation, blood transfusion, need for repeat ERCP, stent placement, anesthesia side effects and risk of ), alternatives including radiological tests and no intervention. Patient verbalized understanding and agreed for the procedure. Informed consent signed. -- In view of patient factors, patient is at elevated risk for post ERCP pancreatitis -- so educated patient about Indomethacin- intra procedural and arturo- procedural RL. -- clear liquid diet till tomorrow 9 AM and then NPO. -- Obtain PT/ INR and type and screen ( orders placed) -- Patient is scheduled for ERCP in OR tomorrow. -- Elective colonoscopy for abnormal CT scan abdomen findings as out patient. Plan of care educated to patient and primary team. Please call for any further questions. Laboratory Data CBC/BMP Laboratory Tests 10/23/16 06:52 Allergies Coded Allergies: Acetaminophen (Verified Allergy, Unknown, rash, 05/15/16) Oxycodone (Verified Allergy, Unknown, rash, 05/15/16) Home Medications Scheduled (Detox) 1 Cap Cap, 1 CAP PO BID, (Reported) JIA NORTH MD Oct 23, 2016 23:18
[2016-10-24] VITALS (9 sets, daily range): BP systolic 108–123; BP diastolic 61–80
[2016-10-24] MEDS: metroNIDAZOLE 500 MG in APPROPRIATE DILUENT 1 EA IV SCH ×3 (02:46→20:00)
[2016-10-24] MEDS: LR 1,000 ML IV SCH ×2 (02:47→14:42)
[2016-10-24] MEDS: CIPROFLOXACIN 400 MG in APPROPRIATE DILUENT 1 EA IV SCH ×2 (04:58→16:00)
[2016-10-24] MEDS ORDERED: LR 1,000 ML IV SCH ×5 (07:00→23:20)
[2016-10-24 07:14] LABS: BASO % 0.4 % (0.0-1.0); EOS # 0.2 K/mm3 (0.0-0.50); EOS % 2.5 % (0.0-3.0); LARGE UNSTAINED CELL # 0.1 K/mm3 (0.0-0.4); LARGE UNSTAINED CELL % 1.3 % (0.0-4.0); LYMPH # 1.8 K/mm3 (1.5-6.5); LYMPH % 26.5 % (24.0-44.0); MEAN CORPUSCULAR HGB CONC 34.3 g/dl (32.0-36.5); MEAN CORPUSCULAR VOLUME 84.5 fl (80.0-96.0); MONO # 0.4 K/mm3 (0.0-0.8); MONO % 6.4 % (0.0-5.0); NEUTROPHILS # 4.1 K/mm3 (1.8-7.7); PLATELET COUNT, AUTOMATED 220 k/mm3 (150-450); RED CELL DISTRIBUTION WIDTH 12.3 % (11.5-14.5); WHITE BLOOD COUNT 6.6 K/mm3 (4.0-10.0)
[2016-10-24 07:27] LABS: INR 1.02
[2016-10-24 07:36] LABS: ALBUMIN 3.3 GM/DL (3.2-5.2); ALKALINE PHOSPHATASE 44 U/L (45-117); ALT/SGPT 38 U/L (12-78); ANION GAP 9 MEQ/L (8-16); AST/SGOT 31 U/L (15-37); BILIRUBIN,TOTAL 0.3 MG/DL (0.2-1.0); BLOOD UREA NITROGEN 8 MG/DL (7-18); CALCIUM LEVEL 8.7 MG/DL (8.5-10.1); CARBON DIOXIDE LEVEL 27 MEQ/L (21-32); CHLORIDE LEVEL 107 MEQ/L (98-107); GLOMERULAR FILTRATION RATE > 60.0 (>60); GLUCOSE, FASTING 91 MG/DL (70-105); POTASSIUM SERUM 3.5 MEQ/L (3.5-5.1); SODIUM LEVEL 143 MEQ/L (136-145); TOTAL PROTEIN 6.6 GM/DL (6.4-8.2)
--- NOTE | 2016-10-24 07:49 | IPNPDOC ---
Subjective General Date/Time Seen The patient was seen on 10/24/16 at 07:47. Subject Chief Complaint/History The patient is a 21-year-old female admitted with a reason for visit of right upper quadrant pain Patient has mostly improved since admission. She is scheduled for ERCP today for findings of common bile duct stones on MRCP. She tolerated oral intake last night when increased pain or nausea. Current Medications Current Medications Current Medications Acetaminophen (Tylenol Tab) 650 mg Q4HP PRN PO MILD PAIN or TEMP > 101; Start 10/21/16 at 09:45; Stop 11/20/16 at 09:44 Ciprofloxacin 400 mg/IV Miscellaneous Supplies 200 ml @ 200 mls/hr Q12H IV Last administered on 10/21/16 16:28; Start 10/21/16 at 10:00; Stop 10/21/16 at 18:11; Status DC Ciprofloxacin 400 mg/IV Miscellaneous Supplies 200 ml @ 200 mls/hr Q12H IV ; Start 10/21/16 at 18:15; Stop 10/28/16 at 18:14; Status Cancel Ciprofloxacin 400 mg/IV Miscellaneous Supplies 200 ml @ 200 mls/hr Q12H IV Last administered on 10/24/16 04:58; Start 10/22/16 at 05:00; Stop 10/29/16 at 04:59 Enoxaparin Sodium (Lovenox) 40 mg DAILY SC Last administered on 10/23/16 08:32 ; Start 10/21/16 at 09:00; Stop 10/26/16 at 08:59 Home Med (Med Rec Complete!) ASDIRECTED XX ; Start 10/21/16 at 10:15; Stop at 10:25; Status DC Hydromorphone HCl (Dilaudid) 0.5 mg Q30M PRN IV MODERATE PAIN (PS 5-7) Last administered on 10/21/16 08:18; Start 10/21/16 at 05:00; Stop 10/21/16 at 08:19 ; Status DC Lactated Ringer's 1,000 ml @ 125 mls/hr Q8H IV Last administered on 10/24/16 02:47; Start 10/21/16 at 09:37; Stop 11/20/16 at 09:36 Lactated Ringer's 1,000 ml @ 500 mls/hr Q2H IV ; Start 10/24/16 at 07:00; Stop 11/23/16 at 06:59 Metronidazole 500 mg/IV Miscellaneous Supplies 100 ml @ 100 mls/hr Q8H IV Last administered on 10/24/16 02:46; Start 10/21/16 at 11:00; Stop 10/28/16 at 10:59 Miscellaneous (Unresolved Clarification Entry) SEE LABEL COMMENTS UNRESOLVED XX ; Start 10/21/16 at 00:01; Stop 10/21/16 at 11:13; Status DC Morphine Sulfate (Morphine Sulfate Inj) 4 mg Q2HP PRN IV SEVERE PAIN (PS 8-10) Last administered on 10/21/16 12:57; Start 10/21/16 at 09:45; Stop 10/28/16 at 09:44 Ondansetron HCl (ZOFRAN INJection) 4 mg Q6HP PRN IV NAUSEA OR VOMITING Last administered on 10/22/16 19:08; Start 10/21/16 at 09:45; Stop 11/20/16 at 09: 44 Oxycodone/ Acetaminophen (Percocet 5mg/ 325mg Tablet) 1 tab Q4HP PRN PO MODERATE PAIN (PS 5-7) Last administered on 10/21/16 20:13; Start 10/21/16 at 09:45; Stop 10/28/16 at 09:44 Oxycodone/ Acetaminophen (Percocet 5mg/ 325mg Tablet) 2 tab Q6HP PRN PO SEVERE PAIN (PS 8-10) Last administered on 10/22/16 09:55; Start 10/21/16 at 09:45; Stop 10/28/16 at 09:44 Pantoprazole Sodium (Protonix) 40 mg DAILY IV Last administered on 10/23/16 08 :32; Start 10/21/16 at 09:00; Stop 11/20/16 at 08:59 Senna/Docusate Sodium (Senokot S) 1 tab BID PO Last administered on 10/23/16 19:57; Start 10/21/16 at 09:00; Stop 11/20/16 at 08:59 Allergies Coded Allergies: Acetaminophen (Verified Allergy, Unknown, rash, 05/15/16) Oxycodone (Verified Allergy, Unknown, rash, 05/15/16) Objective Physical Examination Examination GENERAL APPEARANCE: Comfortable SKIN: Warm and moist. HEENT: Normocephalic, atraumatic. [place] palpebral conjunctiva, anicteric sclerae. Lips and mucosa appear moist. NECK: Supple, no thyromegaly. No obvious jugular venous distention. LUNGS: Clear to auscultation bilaterally. No wheezing appreciated. HEART: No chest wall abnormalities. Regular rate and rhythm with no murmurs appreciated. ABDOMEN: Abdomen is , round soft, nondistended and nontender EXTREMITIES: Extremities have no deformities. No edema identified. Vital Signs Vital Signs Date Time Temp Pulse Resp B/P (MAP) Pulse Ox O2 Delivery O2 Flow Rate FiO2 10/24/16 04:00 99.0 64 16 116/72 (87) 99 Room Air I&Os I&O- Last 24 Hours up to 6 AM 10/24/16 05:59 Intake Total 2310 ml Output Total 1200 ml Balance 1110 ml Laboratory Data Labs 24H Laboratory Tests 2 10/24/16 07:03: White Blood Count 6.6, Red Blood Count 4.57, Hemoglobin 13.2, Hematocrit 38.6, Mean Corpuscular Volume 84.5, Mean Corpuscular Hemoglobin 29.0, Mean Corpuscular Hemoglobin Concent 34.3, Red Cell Distribution Width 12.3, Platelet Count 220, Neutrophils (%) (Auto) 63.0, Lymphocytes (%) (Auto) 26.5, Monocytes ( %) (Auto) 6.4H, Eosinophils (%) (Auto) 2.5, Basophils (%) (Auto) 0.4, Neutrophils # (Auto) 4.1, Lymphocytes # (Auto) 1.8, Monocytes # (Auto) 0.4, Eosinophils # (Auto) 0.2, Basophils # (Auto) 0.0, Large Unclassified Cells % 1.3 , Large Unclassified Cells # 0.1, Prothrombin Time 13.5, Prothromb Time International Ratio 1.02, Activated Partial Thromboplast Time 31.5, Anion Gap 9 , Glomerular Filtration Rate > 60.0, Blood Urea Nitrogen 8#, Creatinine 0.60, Sodium Level 143, Potassium Level 3.5, Chloride Level 107, Carbon Dioxide Level 27, Calcium Level 8.7, Aspartate Amino Transf (AST/SGOT) 31, Alanine Aminotransferase (ALT/SGPT) 38, Alkaline Phosphatase 44L, Total Bilirubin 0.3, Total Protein 6.6, Albumin 3.3, Albumin/Globulin Ratio 1.00 CBC/BMP Laboratory Tests 10/24/16 07:03 Red Blood Count 4.57, Mean Corpuscular Volume 84.5, Mean Corpuscular Hemoglobin 29.0, Mean Corpuscular Hemoglobin Concent 34.3, Red Cell Distribution Width 12.3 , Neutrophils (%) (Auto) 63.0, Lymphocytes (%) (Auto) 26.5, Monocytes (%) (Auto ) 6.4 H, Eosinophils (%) (Auto) 2.5, Basophils (%) (Auto) 0.4, Neutrophils # ( Auto) 4.1, Lymphocytes # (Auto) 1.8, Monocytes # (Auto) 0.4, Eosinophils # (Auto ) 0.2, Basophils # (Auto) 0.0, Calcium Level 8.7, Aspartate Amino Transf (AST/ SGOT) 31, Alanine Aminotransferase (ALT/SGPT) 38, Alkaline Phosphatase 44 L, Total Bilirubin 0.3, Total Protein 6.6, Albumin 3.3 Imaging Studies HIDA scan Findings: The initial hepatocellular parenchymal uptake phase is normal and homogeneous. Intrahepatic and extrahepatic biliary tree is labeled at 10 minutes along with early duodenal labeling. Subsequent images demonstrate washout from the liver parenchyma into the small intestine. There is no evidence of bile leak. The gallbladder is not labeled scintigraphically during the 60-minute imaging interval. Impression Right upper quadrant pain Common bile duct stone abnormal imaging study of the biliary tree, possibly containing biloma Patient scheduled for ERCP today for removal of CBD stone. Have spoken to should develop to try and see if he can do a better retrograde cholangiogram to see if there is a connection between the biliary tree and the biloma. Plan / VTE VTE Prophylaxis Ordered?: Yes GAL COVINGTON MD Oct 24, 2016 07:49
[2016-10-24] MEDS: SENOKOT S TAB PO SCH ×2 (08:37→20:51)
[2016-10-24] MEDS: PANTOPRAZOLE 40MG INJ (PROTONIX) (C9113) IV SCH (08:38)
[2016-10-24] MEDS: ENOXAPARIN 40 MG/0.4 ML SYRINGE (J1650) SC SCH (08:38)
[2016-10-24] MEDS ORDERED: INDOMETHACIN 50 MG SUPPOSITORY (INDOCIN) PR ONE (17:00)
[2016-10-24] MEDS ORDERED: ISOVUE-300 61% 50ML VIAL (Q9967) As Ordered ONE (17:23)
[2016-10-24] MEDS ORDERED: MIDAZOLAM INJ 2 MG/2 ML VIAL (J2250) As Ordered ONE (18:23)
[2016-10-24] MEDS ORDERED: GLYCOPYRROLATE INJ 0.2 MG/ML 2 ML VIAL As Ordered ONE (18:23)
[2016-10-24] MEDS ORDERED: LIDOCAINE 2% INJ 100 MG/5 ML SDV (FOR ANES.) As Ordered ONE (18:23)
[2016-10-24] MEDS ORDERED: fentaNYL 100 MCG/2 ML INJECTION (J3010) As Ordered ONE (18:23)
[2016-10-24] MEDS ORDERED: PROPOFOL 200 MG/20 ML VIAL As Ordered ONE (18:23)
[2016-10-24] MEDS ORDERED: NEOSTIGMINE 1MG/ML 5 ML SYRINGE (J2710) As Ordered ONE (18:23)
[2016-10-24] MEDS ORDERED: METOCLOPRAMIDE INJ 10MG/2ML VIAL (J2765) As Ordered ONE (18:24)
[2016-10-24] MEDS ORDERED: ONDANSETRON 4MG/2ML VIAL (J2405) As Ordered ONE (18:24)
[2016-10-24] MEDS ORDERED: SEVOFLURANE INHAL SOLN 250 ML BTL As Ordered ONE ×2 (18:46→18:48)
[2016-10-24] MEDS ORDERED: EPINEPHrine 1MG/ML INJ 30ML MD-VIAL As Ordered ONE (18:49)
[2016-10-24] MEDS ORDERED: EPINEPHrine INJ 1 MG/ML 1ML AMP As Ordered ONE (18:50)
[2016-10-24] MEDS ORDERED: KETOROLAC 30 MG/ML VIAL (J1885) IV PRN (19:15)
[2016-10-24] MEDS ORDERED: HYDROmorphone HCL 1 MG/ML SYRINGE (J1170) IV PRN (19:15)
[2016-10-24] MEDS ORDERED: ONDANSETRON 4MG/2ML VIAL (J2405) IV PRN (19:15)
[2016-10-24] MEDS ORDERED: fentaNYL 100 MCG/2 ML INJECTION (J3010) IV PRN (19:15)
--- NOTE | 2016-10-24 19:20 | ROOR ---
Patient Name: Miesha Tinajero Procedure Date: 10/24/2016 5:45 PM Date of : 1995 Age: 21 Room: Main OR Gender: Female Note Status: Finalized Procedure: ERCP Indications: For therapy of bile duct stone(s) Providers: David Doe MD Referring MD: Simon Terry MD, ILENE ODOM MD Requesting Provider: Medicines: Monitored Anesthesia Care Complications: No immediate complications. Procedure: Pre-Anesthesia Assessment: - Prior to the procedure, a History and Physical was performed, and patient medications and allergies were reviewed. The patient is competent. The risks and benefits of the procedure and the sedation options and risks were discussed with the patient. All questions were answered and informed consent was obtained. Patient identification and proposed procedure were verified by the physician, the nurse and the underground roof bolter in the procedure room. Mental Status Examination: alert and oriented. Airway Examination: normal oropharyngeal airway and neck mobility. Respiratory Examination: clear to auscultation. CV Examination: normal. Prophylactic Antibiotics: The patient does not require prophylactic antibiotics. Prior Anticoagulants: The patient has taken no previous anticoagulant or antiplatelet agents. ASA Grade Assessment: II - A patient with mild systemic disease. After reviewing the risks and benefits, the patient was deemed in satisfactory condition to undergo the procedure. The anesthesia plan was to use general anesthesia. Immediately prior to administration of medications, the patient was re-assessed for adequacy to receive sedatives. The heart rate, respiratory rate, oxygen saturations, blood pressure, adequacy of pulmonary ventilation, and response to care were monitored throughout the procedure. The physical status of the patient was re-assessed after the procedure. The Duodenoscope was introduced through the mouth, and advanced to the duodenum and used to inject contrast into the bile duct. The ERCP was accomplished without difficulty. The patient tolerated the procedure well. Findings: The cycle analyst film was normal. The esophagus was successfully intubated under direct vision. The scope was advanced to a normal major papilla in the descending duodenum without detailed examination of the pharynx, larynx and associated structures, and upper GI tract. The upper GI tract was grossly normal. The bile duct was deeply cannulated with the short-nosed traction sphincterotome. Contrast was injected. I personally interpreted the bile duct images. Ductal flow of contrast was adequate. Image quality was adequate. Contrast extended to the entire biliary tree. The lower third of the main bile duct contained filling defect(s) thought to be a stone. The main bile duct was diffusely dilated, acquired. The largest diameter was 12 mm. 0.035 inch x 260 cm straight Hydra Jagwire was passed into the biliary tree. Biliary sphincterotomy was made with a monofilament traction (standard) sphincterotome using ERBE electrocautery. There was no post-sphincterotomy bleeding. The biliary tree was swept with a 12 mm balloon starting at the bifurcation. One stone was removed. No stones remained. Area was successfully injected with 5 mL of a 1:10,000 solution of epinephrine through the ERCP scope for hemostasis. Impression: - A filling defect consistent with a stone was seen on the cholangiogram. - The entire main bile duct was dilated, acquired. - A biliary sphincterotomy was performed. - The biliary tree was swept with 12 mm Balloon. - Choledocholithiasis was found. Complete removal was accomplished by biliary sphincterotomy and balloon extraction. - An area successfully injected. Recommendation: - Avoid aspirin and nonsteroidal anti-inflammatory medicines. - [facility]. - Patient has a contact number available for emergencies. The signs and symptoms of potential delayed complications were discussed with the patient. Return to normal activities tomorrow. Written discharge instructions were provided to the patient. - Clear liquid diet for 1 day, then advance as tolerated to resume regular diet. - Continue present medications. - Refer to a surgeon. - Return to primary care physician. David Doe MD David Doe MD 10/24/2016 7:18:52 PM This report has been signed electronically. Number of Addenda: 0 Note Initiated On: 10/24/2016 5:45 PM Estimated Blood Loss: Estimated blood loss was minimal.
--- NOTE | 2016-10-24 19:40 | IPNPDOC ---
Date Seen The patient was seen on 10/24/16. Progress Note Patient underwent ERCP today in OR. Patient tolerated the procedure well. Exam post procedure: Vitals: afebrile. No tachycardia. Abdomen: soft , non distended, normal bowel sounds, Non tender. Labs: todays labs reviewed. ERCP findings: - A filling defect consistent with a stone was seen on the cholangiogram. - The entire main bile duct was dilated, acquired. - A biliary sphincterotomy was performed. - The biliary tree was swept with 12 mm Balloon. - Choledocholithiasis was found. Complete removal was accomplished by biliary sphincterotomy and balloon extraction. - An area successfully injected/ sprayed with epinephrine to treat oozing of blood. No bleeding at the end of procedure. Impression: -- CBD stone with dilated CBD likely from CBD stone. s/p ERCP and biliary sphincterotomy and Balloons sweep and stone removal. Recommendation: -- Avoid aspirin and nonsteroidal anti-inflammatory medicines. -- [facility]. -- Patient has a contact number available for emergencies. The signs and symptoms of potential delayed complications were discussed with the patient. Return to normal activities tomorrow. Written discharge instructions were provided to the patient. -- Clear liquid diet for 1 day, then advance as tolerated to resume regular diet. -- Continue present medications. -- Refer to a surgeon for therapy of the fluid collection at the gall bladder fossa -- likely cystic duct remnant with stones.. -- Return to primary care physician. VS, I&O, 24H, Fishbone Vital Signs/I&O Vital Signs Date Time Temp Pulse Resp B/P (MAP) Pulse Ox O2 Delivery O2 Flow Rate FiO2 10/24/16 19:20 82 16 124/72 (89) 98 Room Air 10/24/16 19:07 97.0 I&O- Last 24 Hours up to 6 AM 10/24/16 06:00 Intake Total 3810 ml Output Total 1200 ml Balance 2610 ml Laboratory Data 24H LABS Laboratory Tests 2 10/24/16 07:03: White Blood Count 6.6, Red Blood Count 4.57, Hemoglobin 13.2, Hematocrit 38.6, Mean Corpuscular Volume 84.5, Mean Corpuscular Hemoglobin 29.0, Mean Corpuscular Hemoglobin Concent 34.3, Red Cell Distribution Width 12.3, Platelet Count 220, Neutrophils (%) (Auto) 63.0, Lymphocytes (%) (Auto) 26.5, Monocytes ( %) (Auto) 6.4H, Eosinophils (%) (Auto) 2.5, Basophils (%) (Auto) 0.4, Neutrophils # (Auto) 4.1, Lymphocytes # (Auto) 1.8, Monocytes # (Auto) 0.4, Eosinophils # (Auto) 0.2, Basophils # (Auto) 0.0, Large Unclassified Cells % 1.3 , Large Unclassified Cells # 0.1, Prothrombin Time 13.5, Prothromb Time International Ratio 1.02, Activated Partial Thromboplast Time 31.5, Anion Gap 9 , Glomerular Filtration Rate > 60.0, Blood Urea Nitrogen 8#, Creatinine 0.60, Sodium Level 143, Potassium Level 3.5, Chloride Level 107, Carbon Dioxide Level 27, Calcium Level 8.7, Aspartate Amino Transf (AST/SGOT) 31, Alanine Aminotransferase (ALT/SGPT) 38, Alkaline Phosphatase 44L, Total Bilirubin 0.3, Total Protein 6.6, Albumin 3.3, Albumin/Globulin Ratio 1.00 CBC/BMP Laboratory Tests 10/24/16 07:03 Red Blood Count 4.57, Mean Corpuscular Volume 84.5, Mean Corpuscular Hemoglobin 29.0, Mean Corpuscular Hemoglobin Concent 34.3, Red Cell Distribution Width 12.3 , Neutrophils (%) (Auto) 63.0, Lymphocytes (%) (Auto) 26.5, Monocytes (%) (Auto ) 6.4 H, Eosinophils (%) (Auto) 2.5, Basophils (%) (Auto) 0.4, Neutrophils # ( Auto) 4.1, Lymphocytes # (Auto) 1.8, Monocytes # (Auto) 0.4, Eosinophils # (Auto ) 0.2, Basophils # (Auto) 0.0, Calcium Level 8.7, Aspartate Amino Transf (AST/ SGOT) 31, Alanine Aminotransferase (ALT/SGPT) 38, Alkaline Phosphatase 44 L, Total Bilirubin 0.3, Total Protein 6.6, Albumin 3.3 JIA NORTH MD Oct 24, 2016 19:40
[2016-10-24] MEDS ORDERED: [UNRECOGNIZED DRUG - REMARK] XX SCH (20:00)
[2016-10-25 00:30] VITALS: BP 111/66
[2016-10-25] MEDS: metroNIDAZOLE 500 MG in APPROPRIATE DILUENT 1 EA IV SCH ×2 (03:22→11:17)
[2016-10-25 04:00] VITALS: BP 114/62
[2016-10-25] MEDS: CIPROFLOXACIN 400 MG in APPROPRIATE DILUENT 1 EA IV SCH (04:54)
[2016-10-25 07:24] LABS: BASO % 0.3 % (0.0-1.0); EOS # 0.1 K/mm3 (0.0-0.50); EOS % 1.9 % (0.0-3.0); LARGE UNSTAINED CELL # 0.2 K/mm3 (0.0-0.4); LARGE UNSTAINED CELL % 3.5 % (0.0-4.0); LYMPH # 1.5 K/mm3 (1.5-6.5); LYMPH % 28.8 % (24.0-44.0); MEAN CORPUSCULAR HGB CONC 35.4 g/dl (32.0-36.5); MONO # 0.4 K/mm3 (0.0-0.8); MONO % 6.8 % (0.0-5.0); NEUTROPHILS # 3.1 K/mm3 (1.8-7.7); NEUTROPHILS % 58.6 % (36.0-66.0); PLATELET COUNT, AUTOMATED 222 k/mm3 (150-450); RED CELL DISTRIBUTION WIDTH 11.9 % (11.5-14.5); WHITE BLOOD COUNT 5.3 K/mm3 (4.0-10.0)
[2016-10-25 07:37] LABS: ALBUMIN 3.1 GM/DL (3.2-5.2); ALBUMIN/GLOBULIN RATIO 0.89 (1.00-1.93); ALKALINE PHOSPHATASE 40 U/L (45-117); ALT/SGPT 105 U/L (12-78); ANION GAP 9 MEQ/L (8-16); AST/SGOT 96 U/L (15-37); BILIRUBIN,TOTAL 0.3 MG/DL (0.2-1.0); BLOOD UREA NITROGEN 6 MG/DL (7-18); CALCIUM LEVEL 8.7 MG/DL (8.5-10.1); CARBON DIOXIDE LEVEL 26 MEQ/L (21-32); CHLORIDE LEVEL 109 MEQ/L (98-107); CREATININE FOR GFR 0.58 MG/DL (0.55-1.02); GLOMERULAR FILTRATION RATE > 60.0 (>60); GLUCOSE, FASTING 87 MG/DL (70-105); POTASSIUM SERUM 3.4 MEQ/L (3.5-5.1); SODIUM LEVEL 144 MEQ/L (136-145); TOTAL PROTEIN 6.6 GM/DL (6.4-8.2)
[2016-10-25 08:00] VITALS: BP 111/68
--- NOTE | 2016-10-25 08:31 | REP ---
ERCP: Two views. History: Cholelithiasis. 2 minutes 26 seconds of fluoroscopy time was utilized. Findings: A sequence of two last image hold fluoroscopic spot radiographs document cannulation and contrast injection in the common bile duct. The visualized intrahepatic bile ducts and common hepatic duct are normal in appearance. The cystic duct is not opacified. No extravasation is seen. No filling defect is noted on these two images. Signed by Jorgito Aguero MD 10/25/2016 09:09 A
[2016-10-25] MEDS: PANTOPRAZOLE 40MG INJ (PROTONIX) (C9113) IV SCH (08:59)
[2016-10-25] MEDS: SENOKOT S TAB PO SCH (08:59)
[2016-10-25] MEDS: ENOXAPARIN 40 MG/0.4 ML SYRINGE (J1650) SC SCH (08:59)
[2016-10-25 12:00] VITALS: BP 117/71
[2016-10-25] MEDS ORDERED: POTASSIUM CHLORIDE 10 MEQ SR TABLET PO ONE (12:00)
--- NOTE | 2016-10-25 13:22 | IPNPDOC ---
Date Seen The patient was seen on 10/25/16. Progress Note Interval history: 21 year old woman with h/o cholecystectomy in 2015 complicated by fluid collection and drain placement and removal ( in 2014), was admitted to [facility] for abdominal pain and Work up showed CBD stones on MRCP and Dialted CBD and extra CBD contained collection of fluid and stones in gall bladder fossa. Underwent ERCP yesterday ( detailed findings below). Today patient feeling much better. Denies any abdominal pain, no nausea or vomiting. Vitals: afebrile. No tachycardia. Abdomen: soft , non distended, normal bowel sounds, Non tender. Labs: reviewed. Normal Hb/HCT and Normal WBC. Slight elevated LFTs. ERCP findings: - A filling defect consistent with a stone was seen on the cholangiogram. - The entire main bile duct was dilated, acquired. - A biliary sphincterotomy was performed. - The biliary tree was swept with 12 mm Balloon. - Choledocholithiasis was found. Complete removal was accomplished by biliary sphincterotomy and balloon extraction. - An area successfully injected/ sprayed with epinephrine to treat oozing of blood. No bleeding at the end of procedure. Impression: -- CBD stone with dilated CBD likely from CBD stone. s/p ERCP and biliary sphincterotomy and Balloons sweep and stone removal. -- Fluid collection at the gall bladder fossa -- likely cystic duct remnant with stones -- Slight elevated LFTs - likely transient - Will monitor with repeat LFTs. Recommendation: -- Avoid aspirin and nonsteroidal anti-inflammatory medicines. -- Patient educated again about the ERCP findings and need for further management/ evaluation by surgery for therapy of the gall bladder fossa collection. -- Advance diet as tolerated to resume regular diet. -- Can discontinue the IV fluid drip. -- Patient to be given the printed ERCP report. -- Discussed the plan of care with patient and the primary team VS, I&O, 24H, Fishbone Vital Signs/I&O Vital Signs Date Time Temp Pulse Resp B/P (MAP) Pulse Ox O2 Delivery O2 Flow Rate FiO2 10/25/16 12:00 98.8 61 18 117/71 (86) 98 Room Air I&O- Last 24 Hours up to 6 AM 10/26/16 05:59 Intake Total 2520 ml Output Total 750 ml Balance 1770 ml Laboratory Data 24H LABS Laboratory Tests 2 10/25/16 07:02: White Blood Count 5.3, Red Blood Count 4.46, Hemoglobin 13.0, Hematocrit 36.6, Mean Corpuscular Volume 82.0, Mean Corpuscular Hemoglobin 29.0, Mean Corpuscular Hemoglobin Concent 35.4, Red Cell Distribution Width 11.9, Platelet Count 222, Neutrophils (%) (Auto) 58.6, Lymphocytes (%) (Auto) 28.8, Monocytes ( %) (Auto) 6.8H, Eosinophils (%) (Auto) 1.9, Basophils (%) (Auto) 0.3, Neutrophils # (Auto) 3.1, Lymphocytes # (Auto) 1.5, Monocytes # (Auto) 0.4, Eosinophils # (Auto) 0.1, Basophils # (Auto) 0.0, Large Unclassified Cells % 3.5 , Large Unclassified Cells # 0.2, Anion Gap 9, Glomerular Filtration Rate > 60.0 , Blood Urea Nitrogen 6L, Creatinine 0.58, Sodium Level 144, Potassium Level 3.4L, Chloride Level 109H, Carbon Dioxide Level 26, Calcium Level 8.7, Aspartate Amino Transf (AST/SGOT) 96H, Alanine Aminotransferase (ALT/SGPT) 105H , Alkaline Phosphatase 40L, Total Bilirubin 0.3, Total Protein 6.6, Albumin 3.1L , Albumin/Globulin Ratio 0.89L CBC/BMP Laboratory Tests 10/25/16 07:02 Red Blood Count 4.46, Mean Corpuscular Volume 82.0, Mean Corpuscular Hemoglobin 29.0, Mean Corpuscular Hemoglobin Concent 35.4, Red Cell Distribution Width 11.9 , Neutrophils (%) (Auto) 58.6, Lymphocytes (%) (Auto) 28.8, Monocytes (%) (Auto ) 6.8 H, Eosinophils (%) (Auto) 1.9, Basophils (%) (Auto) 0.3, Neutrophils # ( Auto) 3.1, Lymphocytes # (Auto) 1.5, Monocytes # (Auto) 0.4, Eosinophils # (Auto ) 0.1, Basophils # (Auto) 0.0, Calcium Level 8.7, Aspartate Amino Transf (AST/ SGOT) 96 H, Alanine Aminotransferase (ALT/SGPT) 105 H, Alkaline Phosphatase 40 L , Total Bilirubin 0.3, Total Protein 6.6, Albumin 3.1 L JIA NORTH MD Oct 25, 2016 13:22
[2016-10-25] MEDS ORDERED: PERCOCET PO (14:00)
[2016-10-25 14:25] LABS: BILIRUBIN,DIRECT < 0.1 MG/DL (0.0-0.2)
--- NOTE | 2016-11-21 14:11 | DS.PDOC ---
Discharge Summary General Date of Admission Oct 21, 2016 at 09:37 Date of Discharge 10/25/2016 Attending Physician: GAL COVINGTON MD Specialist/Consultants Involve: JIA NORTH MD Discharge Summary PROCEDURES PERFORMED DURING STAY: ERCP with stone extraction and sphincterotomy ADMITTING DIAGNOSES: 1. Recurrent right upper quadrant pain 2. Chronic biloma 3. Possible reactive colitis DISCHARGE DIAGNOSES: 1. Retained common bile duct stone status post ERCP, stone extraction, sphincterotomy 2. Chronic biloma, noninfected COMPLICATIONS/CHIEF COMPLAINT: Abdominal Pain Rt Lateral Cystic Duct Calculus. HISTORY OF PRESENT ILLNESS: See HPI. HOSPITAL COURSE: Patient presents with recurrent right upper quadrant pain ever since cholecystectomy but done in 2014 for cholelithiasis. She had exacerbation of her symptoms and presented herself to the emergency department. I saw her in the emergency room and noted her to be uncomfortable with tenderness in the right upper quadrant area. She had couple imaging studies that shows what most likely is a biloma that contains stones that fell either during surgery after the surgery the right upper quadrant area. She had normal LFTs. She has mild leukocytosis. She was presumed to have biloma, possible infection, possible retained stones in the biliary tree. MRCP was done. She was started on IV fluids and kept on clear liquids. She was placed on IV antibiotics. Her pain did gradually improved. MRCP shows possibility of a distal common bile duct stone with mild biliary dilatation. Consult was obtained from gastroenterology. She underwent ERCP uneventfully. Her pain resolved. She was able to tolerate diet. Her LFTs amylase and lipase remain normal. Patient is subsequently discharged home. No further antibiotics are needed. There still remains a mystery on what to do with the retained biloma but this does not seem to be infected at this time. DISCHARGE MEDICATIONS: Please see below. ALLERGIES: Please see below. PHYSICAL EXAMINATION ON DISCHARGE: VITAL SIGNS: Please see below. GENERAL: Comfortable HEENT: Anicteric sclerae NECK: Supple no lymphadenopathy CARDIOVASCULAR EXAMINATION: Regular heart rate and rhythm RESPIRATORY EXAMINATION: Clear breath sounds bilaterally ABDOMINAL EXAMINATION: Soft, nondistended, nontender and palpation EXTREMITIES: No edema SKIN: No jaundice NEUROLOGICAL EXAMINATION: Awake, alert, oriented LABORATORY DATA: Please see below. IMAGIN. CT scan of the abdomen and pelvis 2. Gallbladder ultrasound 3. MRCP 4. HIDA scan gallbladder PROGNOSIS: Good ACTIVITY: [As tolerated]. DIET: Low-fat diet. DISCHARGE PLAN: Patient is discharged home to follow-up in 2 weeks' time. She will need for prior to a hepatobiliary surgeon regarding chronically retained biloma with Gallstones within it DISPOSITION: 01 Home, Self-Care. DISCHARGE INSTRUCTIONS: 1. As above, no wound care needed 2. Activity as tolerated DISCHARGE CONDITION: [Stable]. TIME SPENT ON DISCHARGE: Greater than 30 minutes. Discharge Medications Scheduled (Detox) 1 Cap Cap, 1 CAP PO BID, (Reported) Scheduled PRN Oxycodone/Acetaminophen (Percocet 5MG/325MG Tablet) 1 Tab Tab, 1 TAB PO Q4HP PRN for MODERATE PAIN (PS 5-7) Allergies Coded Allergies: Oxycodone (Verified Allergy, Mild, rash, 10/24/16) GAL COVINGTON MD Nov 21, 2016 14:11
== END 2016-10-25 15:14 | disposition home or self-care (01) | DRG 446 ==
LOC: M ED 01:21 → M ED INP 09:37 → M PED 16:20
PROVIDERS: ADMIT Surgery; ATTEND Surgery
PROC: 0FC98ZZ Extirpation of Matter from Common Bile Duct, Via Natural or Artificial Opening Endoscopic (ICD-10-PCS; principal; 2016-10-24 18:44)
DX: K80.50 Calculus of bile duct without cholangitis or cholecystitis without obstruction (principal); D72.829 Elevated white blood cell count, unspecified; Z88.5 Allergy status to narcotic agent; F17.210 Nicotine dependence, cigarettes, uncomplicated; Z79.899 Other long term (current) drug therapy; Z88.8 Allergy status to other drugs, medicaments and biological substances